=== PATIENT | female | born 1950 | race Caucasian/White ===

== ENCOUNTER 2019-10-06 06:31 | Day surgery (SDC) | payer MEDICARE, OTHER ==
[2019-10-06] MEDS ORDERED: Lactated Ringers 1,000 ML IV SCH (07:00)
[2019-10-06] MEDS ORDERED: Sodium Chloride 0.9% 10 ML Syringe FLUSH PRN (07:00)
[2019-10-06] MEDS ORDERED: Propofol 200 MG/20 ML SDV ONE (08:05)
[2019-10-06] MEDS ORDERED: fentaNYL 100 MCG/2 ML SDV ONE (08:05)
--- NOTE | 2019-10-06 11:04 | OR ---
PRE-OPERATIVE DIAGNOSES: Positive Cologuard. This is the patient's first colonoscopy. There is no known family history of colon cancer in first-degree relatives. POST-OPERATIVE DIAGNOSES: 1. Three small polyps removed using cold forceps. a. 3 mm polyp at 35 cm. b. 2 mm x2 at 15 cm. 2. Tortuous colon. PROCEDURE: Colonoscopy with polypectomy x3 using cold forceps. ANESTHESIA: Monitored anesthesia care. BOWEL PREP: Good. Ev is a 69-year-old female, who was brought to the endoscopy suite after discussing risks and benefits of the procedure. Informed consent was obtained for conscious sedation and colonoscopy with or without biopsy and/or polypectomy. We also discussed possibility of missed lesions. Pre-procedure exam was unremarkable. IV, oxygen, and monitors were placed. The patient was placed in the left lateral decubitus position. Sedation was administered and a digital rectal exam was performed and unremarkable. Colonoscope was passed into the rectum and slowly advanced all the way to the cecum. The patient did have a somewhat tortuous colon. Cecum was viewed and photographed. The colonoscope was slowly withdrawn and the mucosa was closed observed in a direct circumferential manner. The ascending colon was unremarkable. The transverse colon was unremarkable. The descending colon was unremarkable. The sigmoid colon revealed 3 mm polyp at 35 cm and 2 mm polyp x2 at 15 cm, all removed using cold forceps. Retroflexion was performed and rectal mucosa was unremarkable. Scope was removed. The patient tolerated the procedure well. The patient was monitored until that baseline status. Discharge instructions were reviewed and the patient was discharged in good condition. COMPLICATIONS: None. TOTAL TIME: 28 minutes. ESTIMATED BLOOD LOSS: Less than 1 mL. RECOMMENDATIONS/FOLLOW-UP: We will await results of path report to determine ideal followup interval. I would like to kindly thank Armida Sorto DO for this referral. DMB: 10/06/2019 09:05:33 MODL: 10/06/2019 10:55:11 /[id number]
== END 2019-10-06 09:45 | disposition home or self-care (01) ==
LOC: VM.SDS 06:31
PROVIDERS: ATTEND Family Medicine
DX: K63.5 Polyp of colon (principal); Q43.8 Other specified congenital malformations of intestine; E66.9 Obesity, unspecified; Z68.25 Body mass index [BMI] 25.0-25.9, adult
CPT/HCPCS: 45380; J2704; J3010; J7120; 88305